=== PATIENT | male | born 1970 | race Caucasian/White ===

== ENCOUNTER → 2017-09-11 | Outpatient (CLI) | payer OTHER | END | disposition home or self-care (01) | LOC: CFH 06:41 | PROVIDERS: ATTEND Nurse Practitioner Primary Care | DX: M51.36 Other intervertebral disc degeneration, lumbar region (principal); M51.26 Other intervertebral disc displacement, lumbar region; R01.1 Cardiac murmur, unspecified; E78.5 Hyperlipidemia, unspecified; R53.83 Other fatigue; J45.20 Mild intermittent asthma, uncomplicated; Z80.42 Family history of malignant neoplasm of prostate | CPT/HCPCS: 72148; 93306 ==

== ENCOUNTER → 2017-09-16 | Outpatient (CLI) | payer OTHER | END | disposition home or self-care (01) | LOC: CFH 14:49 | PROVIDERS: ATTEND Orthopaedic Surgery | DX: M51.27 Other intervertebral disc displacement, lumbosacral region (principal); G89.29 Other chronic pain | CPT/HCPCS: 72110 ==

== ENCOUNTER 2017-09-19 05:56 | Inpatient (IN) | payer OTHER ==
[~2017-09-19] VITALS: Ht 182.9 cm; Wt 89.6 kg
[2017-09-19] MEDS ORDERED: HYDROmorphone 2MG TABLET PO STA (07:28)
[2017-09-19] MEDS ORDERED: HYDROmorphone 2MG TABLET ONE (07:33)
[2017-09-19] MEDS ORDERED: methylPREDNISolone SOD SUCC 125 MG/2 ML ONE (09:27)
[2017-09-19] MEDS ORDERED: methylPREDNISolone SOD SUCC 125 MG/2 ML IVPush ONE (09:30)
[2017-09-19] MEDS ORDERED: KETOROLAC 30 MG/1 ML ONE (10:43)
[2017-09-19] MEDS ORDERED: KETOROLAC 30 MG/1 ML IM ONE (11:00)
[2017-09-19] MEDS ORDERED: KETOROLAC 30 MG/1 ML IVPush ONE (11:00)
[2017-09-19] MEDS ORDERED: OXYcodone/APAP 5/325MG TABLET ONE (12:05)
[2017-09-19] MEDS ORDERED: TIZA2CAP PO (13:36)
[2017-09-19] MEDS ORDERED: PRAV20TA2 PO (13:36)
[2017-09-19] MEDS ORDERED: GABA300C10 PO (13:36)
[2017-09-19] MEDS ORDERED: OXYC-302 PO (13:36)
[2017-09-19] MEDS ORDERED: CHOL500045 PO (13:36)
[2017-09-19] MEDS ORDERED: ENALAPRILAT 1.25 MG/ML, 2ML IVPush PRN (14:00)
[2017-09-19] MEDS ORDERED: ACETAMINOPHEN 325 MG TABLET PO PRN (14:00)
[2017-09-19] MEDS ORDERED: ONDANSETRON 2MG/ML, 2ML IVPush PRN (14:00)
[2017-09-19] MEDS ORDERED: CHOLECALCIFEROL 1,000 UNIT TABLET PO SCH (14:00)
[2017-09-19] MEDS ORDERED: hydrALAzine 20 MG/ML, 1ML IVPush PRN (14:00)
[2017-09-19] MEDS ORDERED: POLYETHYLENE GLYCOL 17 GM PACKET PO PRN (14:00)
[2017-09-19] MEDS ORDERED: BISACODYL 10 MG SUPP PR PRN (14:00)
[2017-09-19] MEDS ORDERED: OXYcodone IR 5MG TABLET PO PRN (14:00)
[2017-09-19] MEDS ORDERED: HYDROmorphone 2 MG/ML, 1ML IVPush PRN (14:00)
[2017-09-19] MEDS: TIZANIDINE 4MG TABLET PO SCH ×2 (14:30→21:16)
[2017-09-19] MEDS ORDERED: HYDROmorphone 2 MG/ML, 1ML ONE (14:32)
[2017-09-19] MEDS: DEXAMETHASONE 4 MG TABLET PO SCH ×2 (14:38→23:42)
[2017-09-19] MEDS: ENOXAPARIN 40 MG/0.4 ML SQ SCH (14:38)
[2017-09-19 14:52] VITALS: BP 145/76
[2017-09-19 15:23] LABS: FREE T4 (FREE THYROXINE) 0.95 ng/dL (0.76-1.46); THYROID STIMULATING HORMONE 0.758 mIU/L (0.358-3.740)
[2017-09-19 15:33] LABS: HEMOGLOBIN A1C 5.4 % (4.2-6.3)
[2017-09-19] MEDS: OXYcodone/APAP 5/325MG TABLET PO SCH ×2 (17:58→21:16)
[2017-09-19] MEDS: METHOCARBAMOL 750 MG TABLET PO PRN ×2 (18:02→23:42)
[2017-09-19] MEDS: GABAPENTIN 300 MG CAPSULE PO SCH ×2 (18:02→21:15)
[2017-09-19] MEDS: MORPHINE SULFATE 4 MG/ML, 1ML IVPush PRN ×2 (19:56→23:41)
[2017-09-19 19:57] VITALS: BP 148/85
[2017-09-19 20:34] LABS: MICROSCOPIC NOT IND
[2017-09-19 20:41] LABS: CULTURE INDICATED? NO
[2017-09-19] MEDS: PRAVASTATIN 20 MG TABLET PO SCH (21:15)
[2017-09-19] MEDS: OMEPRAZOLE 20 MG CAPSULE.DR PO SCH (21:15)
[2017-09-20 01:19] VITALS: BP 133/78
[2017-09-20] MEDS: OXYcodone/APAP 5/325MG TABLET PO SCH ×4 (02:57→23:45)
[2017-09-20] MEDS: MORPHINE SULFATE 4 MG/ML, 1ML IVPush PRN ×3 (04:53→14:32)
[2017-09-20 05:44] LABS: BASOPHILS % (AUTO) 0 % (0-1); EOSINOPHILS # (AUTO) 0.01 x10^3/uL (0-0.4); EOSINOPHILS % (AUTO) 0 % (1-7); LYMPHOCYTES # (AUTO) 0.69 x10^3/uL (1-3.4); LYMPHOCYTES % (AUTO) 6 % (22-44); MD NO; MEAN CORPUSCULAR HEMOGLOBIN 31.8 pg (27.5-34.5); MEAN CORPUSCULAR HGB CONC 34.4 g/dL (33.2-36.2); MEAN CORPUSCULAR VOLUME 92.4 fL (81-97); MEAN PLATELET VOLUME 7.1 fL (7.4-10.4); MONOCYTES # (AUTO) 0.23 x10^3/uL (0.2-0.8); MONOCYTES % (AUTO) 2 % (2-9); NEUTROPHILS # (AUTO) 10.22 x10^3/uL (1.8-6.8); NEUTROPHILS % (AUTO) 92 % (42-75); PLATELET COUNT 271 x10^3/uL (130-400); RED BLOOD COUNT 4.27 x10^6/uL (4.38-5.82); RED CELL DISTRIBUTION WIDTH 12.4 % (9.4-14.8)
[2017-09-20 05:55] LABS: CHLORIDE 102 mmol/L (98-107)
[2017-09-20 06:02] LABS: ALANINE AMINOTRANSFERASE 50 U/L (12-78); ALBUMIN 3.4 g/dL (3.4-5.0); ALKALINE PHOSPHATASE 53 U/L (45-117); ANION GAP 12 mmol/L (5-15); BILIRUBIN,TOTAL 0.8 mg/dL (0.2-1.0); CALCIUM 8.7 mg/dL (8.5-10.1); CHOL/HDL RATIO 5.9; CHOLESTEROL, TOTAL 261 mg/dL (140-239); HDL CHOL % 17 % (26-37); HDL CHOLESTEROL (DIRECT) 44 mg/dL (40-60); TOTAL PROTEIN 6.9 g/dL (6.4-8.2); TRIGLYCERIDES 506 mg/dL (50-200)
[2017-09-20] MEDS: TIZANIDINE 4MG TABLET PO SCH ×3 (07:08→22:01)
[2017-09-20 07:21] VITALS: BP 126/76
[2017-09-20] MEDS: GABAPENTIN 300 MG CAPSULE PO SCH ×3 (08:25→22:01)
[2017-09-20] MEDS: METHOCARBAMOL 750 MG TABLET PO PRN (08:26)
[2017-09-20] MEDS: OMEPRAZOLE 20 MG CAPSULE.DR PO SCH ×2 (08:26→22:01)
[2017-09-20] MEDS: DEXAMETHASONE 4 MG TABLET PO SCH ×3 (08:26→16:47)
[2017-09-20] MEDS: SENNA/DOCUSATE TABLET PO SCH (08:26)
[2017-09-20] MEDS: ENOXAPARIN 40 MG/0.4 ML SQ SCH (14:32)
[2017-09-20 14:45] VITALS: BP 125/84
[2017-09-20] MEDS ORDERED: HYDROmorphone PCA 30 MG/30 ML IV PRN (16:00)
[2017-09-20 16:40] LABS: INTERNATIONAL NORMALIZED RATIO 0.97 (0.93-1.1); PROTHROMBIN TIME 10.1 Seconds (9.6-11.5)
[2017-09-20 18:31] VITALS: BP 130/77
[2017-09-20] MEDS: PRAVASTATIN 20 MG TABLET PO SCH (22:01)
[2017-09-21 01:58] VITALS: BP 118/72
[2017-09-21] MEDS: OXYcodone/APAP 5/325MG TABLET PO SCH (05:30)
[2017-09-21] MEDS: TIZANIDINE 4MG TABLET PO SCH ×2 (06:00→14:00)
[2017-09-21] MEDS ORDERED: HYDROcodone/APAP 5/325 TABLET PO PRN (07:00)
[2017-09-21] MEDS ORDERED: DIPHENHYDRAMINE 50 MG/ML, 1ML IM PRN (07:00)
[2017-09-21] MEDS ORDERED: LABETALOL 5MG/ML 40ML VIAL IVPush SCH (07:00)
[2017-09-21] MEDS ORDERED: NS + 20MEQ KCL 1,000 ML IV SCH (07:00)
[2017-09-21] MEDS ORDERED: PHARMACY MAY ADJ FOR RENAL FX MC PRN (07:00)
[2017-09-21] MEDS ORDERED: DIPHENHYDRAMINE 50 MG/ML, 1ML IVPush PRN (07:00)
[2017-09-21] MEDS ORDERED: LABETALOL 5MG/ML, 20ML IVPush PRN (07:00)
[2017-09-21] MEDS ORDERED: PROMETHAZINE 25 MG/ML, 1ML IM PRN (07:00)
[2017-09-21] MEDS ORDERED: OXYcodone/APAP 5/325MG TABLET PO PRN (07:00)
[2017-09-21] MEDS ORDERED: CEFAZOLIN PMX 1GM/50ML 50 ML IVPB SCH (07:00)
[2017-09-21] MEDS ORDERED: EPINEPHRINE 1 MG/ML, 1ML ONE (07:07)
[2017-09-21] MEDS ORDERED: THROMBIN 5,000 UNIT VIAL TP ONE (07:07)
[2017-09-21] MEDS ORDERED: BUPIVACAINE/PF 0.5% ONE (07:07)
[2017-09-21] MEDS ORDERED: BACITRACIN 50,000 UNIT ONE (07:08)
[2017-09-21] MEDS ORDERED: MIDAZOLAM 1 MG/ML, 2ML ONE (07:11)
[2017-09-21] MEDS ORDERED: FENTANYL PF 250 MCG/5ML ONE (07:11)
[2017-09-21] MEDS ORDERED: LIDOCAINE GEL 2%, 5ML ONE ×2 (07:16)
[2017-09-21] MEDS ORDERED: ONDANSETRON 2MG/ML, 2ML IVPush PRN (07:30)
[2017-09-21] MEDS ORDERED: DIAZEPAM 5 MG/ML, 2ML IVPush PRN (07:30)
[2017-09-21] MEDS ORDERED: HYDROmorphone 1 MG/ML, 1ML IV PRN (07:30)
[2017-09-21] MEDS ORDERED: hydrALAzine 20 MG/ML, 1ML IV PRN (07:30)
[2017-09-21] MEDS ORDERED: MIDAZOLAM 1 MG/ML, 2ML IV PRN (07:30)
[2017-09-21] MEDS ORDERED: OXYcodone 5 MG/5 ML ORAL.SOL UDC PO PRN (07:30)
[2017-09-21] MEDS ORDERED: ACETAMINOPHEN 325 MG TABLET PO PRN (07:30)
[2017-09-21] MEDS ORDERED: MEPERIDINE/PF 25MG/0.5ML IVPush PRN (07:30)
[2017-09-21] MEDS ORDERED: ALBUTEROL/IPRATROPIUM 2.5MG/0.5MG, 3 ML NPPB PRN (07:30)
[2017-09-21] MEDS ORDERED: FENTANYL PF 100 MCG/2ML IV PRN (07:30)
[2017-09-21] MEDS ORDERED: PROMETHAZINE 25 MG/ML, 1ML IV PRN (07:30)
[2017-09-21] MEDS ORDERED: LABETALOL 5MG/ML, 20ML IV PRN (07:30)
[2017-09-21] MEDS ORDERED: ROCURONIUM 10 MG/ML,10ML ONE (07:43)
[2017-09-21] MEDS ORDERED: SUCCINYLCHOLINE 20 MG/ML, 10ML ONE (07:43)
[2017-09-21] MEDS ORDERED: DEXAMETHASONE 4 MG/ML, 1ML ONE (08:04)
[2017-09-21] MEDS ORDERED: KETAMINE 10 MG/ML, 20ML ONE (08:04)
[2017-09-21] MEDS ORDERED: ONDANSETRON 2MG/ML, 2ML ONE (08:04)
[2017-09-21] MEDS ORDERED: CEFAZOLIN 1,000 MG ONE (08:04)
[2017-09-21] MEDS ORDERED: PROPOFOL 10 MG/ML, 20ML ONE (08:04)
[2017-09-21] MEDS ORDERED: BUPIVACAINE/PF-EPI 0.5% 1:200K INFIL ONE (08:18)
[2017-09-21] MEDS ORDERED: KETOROLAC 30 MG/1 ML ONE (08:27)
[2017-09-21] MEDS ORDERED: VANCOMYCIN 500 MG ONE (08:32)
[2017-09-21] MEDS ORDERED: ACETAMINOPHEN 650 MG/20.3 ML UDC ONE (09:16)
[2017-09-21] MEDS ORDERED: OXYcodone 5 MG/5 ML ORAL.SOL UDC ONE (09:16)
[2017-09-21 10:05] VITALS: BP 138/83
[2017-09-21] MEDS: SENNA/DOCUSATE TABLET PO SCH (10:44)
[2017-09-21] MEDS: GABAPENTIN 300 MG CAPSULE PO SCH (10:44)
[2017-09-21 13:37] VITALS: BP 148/83
[2017-09-21] MEDS ORDERED: KETOROLAC 30 MG/1 ML IVPush ONE (14:00)
== END 2017-09-21 15:20 | disposition home or self-care (01) | DRG 520 ==
LOC: ED 12:00 → EDIP 12:53 → 3NE 14:00 → 4NOR 09-21 08:47
PROVIDERS: ADMIT Hospitalist; ATTEND Family Medicine
PROC: 0SB20ZZ Excision of Lumbar Vertebral Disc, Open Approach (ICD-10-PCS; principal; 2017-09-19)
DX: M51.16 Intervertebral disc disorders with radiculopathy, lumbar region (principal); E55.9 Vitamin D deficiency, unspecified; E78.5 Hyperlipidemia, unspecified; M46.90 Unspecified inflammatory spondylopathy, site unspecified; M79.671 Pain in right foot; Z80.0 Family history of malignant neoplasm of digestive organs; Z80.1 Family history of malignant neoplasm of trachea, bronchus and lung
CPT/HCPCS: 36415; 72100; 72110; 80053; 80061; 81003; 82306; 82607; 83036; 83735; 84439; 84443; 85025; 85610; 96374; 96375; J0171; J0690; J1100; J1170; J1650; J1885; J2250; J2405; J2704; J3010; J3370; J3490; J0330; J2930; J7512